=== PATIENT | female | born 1950 | race Caucasian/White ===

== ENCOUNTER 2016-10-31 18:42 | Emergency (ER) | payer SELFPAY ==
[~2016-10-31] VITALS: Ht 157.5 cm; Wt 53.5 kg
[2016-11-01 00:31] VITALS: BP 140/93
[2016-11-01 00:54] LABS: Urine Bilirubin Negative (Negative); Urine Blood TRACE /uL (Negative); Urine Color Yellow (Yellow); Urine Glucose Normal (Normal); Urine Nitrite Negative (Negative); Urine RBC 3 /hpf (0 - 4); Urine Urobilinogen Normal (Negative); Urine pH 6.5 (5.0-8.0)
[2016-11-01 00:55] LABS: Urine Ketone 1+ (Negative)
== END 2016-11-01 01:06 | disposition home or self-care (01) ==
LOC: ER 18:45
DX: K04.7 Periapical abscess without sinus (principal); F41.9 Anxiety disorder, unspecified; R51 Headache
CPT/HCPCS: 70450; 81001; 99285; G0434